=== PATIENT | female | born 1940 | race Caucasian/White ===

== ENCOUNTER → 2018-01-08 | Outpatient (CLI) | payer MEDICARE ==
[~2018-01-08] MED LIST: ALEV220T14 PO; ALPR0.25 PO; ASPI1TAB57 PO; CALC1TAB87 PO; CENTCHW4 CHEW; DIGO0.12 PO; ESCI10TA PO; LABE100T2 PO; OXYB5TAB8 PO; PREM0.622 PO; TAB-TAB PO; VITA100064 PO; VITA500T4 PO
[2018-01-08 09:35] LABS: AUTOMATED NEUTROPHIL # 2.4 TH/MM3 (1.8-7.7); BASOPHIL % 0.8 % (0.0-2.0); EOSINOPHIL # 0.3 TH/MM3 (0-0.4); EOSINOPHIL % 5.7 % (0.0-4.0); HEMOGLOBIN 13.7 GM/DL (11.6-15.3); LYMPH % 34.1 % (9.0-44.0); LYMPHOCYTE # 1.5 TH/MM3 (1.0-4.8); MEAN CELL VOLUME 94.1 FL (80.0-100.0); MEAN CORPUSCULAR HEMOGLOBIN 32.3 PG (27.0-34.0); MEAN CORPUSCULAR HGB CONC 34.3 % (32.0-36.0); MEAN PLATELET VOLUME 8.7 FL (7.0-11.0); MONO % 6.8 % (0.0-8.0); MONOCYTE # 0.3 TH/MM3 (0-0.9); NEUT % 52.6 % (16.0-70.0); PLATELET COUNT 177 TH/MM3 (150-450); RED BLOOD COUNT 4.25 MIL/MM3 (4.00-5.30); RED CELL DISTRIBUTION WIDTH 13.4 % (11.6-17.2); WHITE BLOOD COUNT 4.5 TH/MM3 (4.0-11.0)
[2018-01-08 09:42] LABS: INTERNATIONAL NORMALIZED RATIO 1.1 RATIO
[2018-01-08 09:59] LABS: BACTERIA, URINE MANY /hpf; BILIRUBIN, URINE NEG (NEG); BLOOD, URINE NEG (NEG); GLUCOSE,URINE NEG (NEG); KETONE, URINE NEG (NEG); MUCUS URINE FEW /lpf (OCC); NITRITE,URINE POS (NEG); SQUAMOUS EPITHELIAL CELL URINE 1 /hpf (0-5); URINE COLOR YELLOW (YELLW/STRAW); URINE LEUKOCYTE ESTERASE LARGE (NEG); WHITE BLOOD CELL CLUMPS OCC
[2018-01-08 09:59] LABS: ALBUMIN 3.7 GM/DL (3.4-5.0); AST (GOT) 16 U/L (15-37); BICARBONATE 28.4 MEQ/L (21.0-32.0); BLOOD UREA NITROGEN 22 MG/DL (7-18); CALCIUM 9.5 MG/DL (8.5-10.1); CHLORIDE 105 MEQ/L (98-107); CREATININE 1.04 MG/DL (0.50-1.00); GLOMERULAR FILTRATION RATE 51 ML/MIN (>89); GLUCOSE,FASTING 108 MG/DL (74-99); SODIUM (NA) 140 MEQ/L (136-145)
[2018-01-08 10:06] LABS: ALKALINE PHOSPHATASE 53 U/L (45-117); ALT (GPT) 28 U/L (10-53); TOTAL BILIRUBIN ADULT 0.6 MG/DL (0.2-1.0); TOTAL PROTEIN 7.2 GM/DL (6.4-8.2)
--- NOTE | 2018-01-08 15:33 | EKG ---
Date Performed: 01/08/2018 Time Performed: 08:44:46 PTAGE: 77 years EKG: SUPRAVENTRICULAR BRADYCARDIA BORDERLINE LEFT AXIS DEVIATION Since the previous tracing, no significant change noted ABNORMAL RHYTHM ECG PREVIOUS TRACING : 03/29/2010 13.33 DOCTOR: Cecilio Hudson Interpretating Date/Time 01/08/2018 15:25:44
== END ==
LOC: CPRE 08:01
PROVIDERS: ATTEND Surgery
DX: Z01.812 Encounter for preprocedural laboratory examination (principal); Z01.810 Encounter for preprocedural cardiovascular examination; B96.20 Unspecified Escherichia coli [E. coli] as the cause of diseases classified elsewhere; M79.609 Pain in unspecified limb; R00.1 Bradycardia, unspecified; R94.31 Abnormal electrocardiogram [ECG] [EKG]
CPT/HCPCS: 36415; 80053; 81001; 85025; 85610; 85730; 87077; 87086; 87186; 93005

== ENCOUNTER 2018-04-09 05:05 | Observation (INO) ==
[2018-04-09] MEDS ORDERED: Dexamethasone Inj 20 MG/5 ML Vial ONE (06:30)
[2018-04-09] MEDS ORDERED: Vancomycin Inj 1 GM/200 ML PIGGYBACK IV.SIG ONE (06:30)
[2018-04-09] MEDS ORDERED: Bupivacaine/Dextrose 0.75% Inj 2 ML Ampul ONE (06:36)
[2018-04-09] MEDS ORDERED: Bupivacaine PF 0.25% Inj 30 ML Vial ONE (07:11)
[2018-04-09] MEDS ORDERED: Propofol Inj 500 MG/50 ML Vial ONE (07:11)
[2018-04-09] MEDS ORDERED: ceFAZolin 2 GM Premix Inj 2 GM/50 ML PIGGYBACK IV.SIG ONE (07:23)
[2018-04-09] MEDS ORDERED: Bupivacaine Liposomal PF 1.3% Inj 20 ML Vial ONE (07:24)
[2018-04-09 07:40] LABS: Bacteria,Urine Occasional /hpf; Bilirubin,Urine Negative (Negative); Clarity,Urine Clear (Clear); Color,Urine Straw (Yellw/Straw); Glucose,Urine (UA) Negative (Negative); Leukocyte Esterase,Urine Negative (Negative); Mucus,Urine Few /lpf (Occasional); Nitrite,Urine Negative (Negative); Specific Gravity,Urine 1.006 (1.002-1.035); Squamous Epithelial Cell,Urine <1 /hpf (0-5)
[2018-04-09] MEDS ORDERED: ALPRAZolam 0.25 MG Tablet PO PRN (08:01)
--- NOTE | 2018-04-09 08:09 | MH ---
cc: Telma Bright MD DATE OF ADMISSION: 04/09/2018 DATE OF ADMISSION FOR SURGERY: 04/09/2018 ADMITTING DIAGNOSIS: Osteoarthritic degeneration of the right knee, now being admitted for right total knee arthroplasty. HISTORY OF PRESENT ILLNESS: This pleasant 77-year-old female is being admitted today for right total knee arthroplasty due to severe painful osteoarthritic degeneration of the right knee. PAST MEDICAL HISTORY: The patient has a history of anxiety, arthritis, breast cancer, depression, heart problems and back pain. CURRENT MEDICATIONS: She stopped her Eliquis now before surgery. She is on labetalol, digoxin, oxybutynin, alprazolam and escitalopram. PAST SURGICAL HISTORY: Mastectomy. REVIEW OF SYSTEMS: Noncontributory. FAMILY HISTORY: Noncontributory. SOCIAL HISTORY: She does not smoke or drink. ALLERGIES: ALLERGIC TO STRAIGHT CODEINE. PHYSICAL EXAMINATION: GENERAL: We find a 77-year-old female, well-developed, well-nourished, oriented x 3, complaining of pain in right knee. VITAL SIGNS: Blood pressure 110/60, pulse 62 and regular, respirations 18, temperature 98.2, pulse oximetry 97% on room air. HEENT: Eyes PERRLA. EOMI. Ears, nose, mouth clear. NECK: Supple. LUNGS: Clear. HEART: Regular rate. ABDOMEN: Soft, positive bowel sounds, nontender. EXTREMITIES: Reveal right knee to have crepitance on range of motion. She is neurovascularly intact to her toes. IMPRESSION: Osteoarthritic degeneration of the right knee. PLAN: Admission for right total knee arthroplasty today. The patient given prescription for postoperative pain and anticoagulation control in the office. Plans on going home after surgical stay in the hospital. Telma Bright MD JRR/KD , 01:11 PM , 01:38 PM
[2018-04-09] MEDS ORDERED: Sodium Chlor 0.9% Inj 80 ML, Bupivacaine Liposo PF 1.3% Inj 20 ML, Bupivacaine PF 0.25%... P-ARTICULR SCH ×3 (08:30)
[2018-04-09] MEDS ORDERED: Vancomycin Inj 1 GM/200 ML PIGGYBACK IV.SIG SCH (09:00)
[2018-04-09] MEDS ORDERED: SODIUM CHLOR 0.9% IV.SIG SCH ×3 (09:00→11:30)
[2018-04-09] MEDS ORDERED: CALCIUM CITRATE 200 MG PO SCH (09:00)
[2018-04-09] MEDS ORDERED: TRANEXAMIC ACID IV.SIG SCH ×3 (09:00→11:30)
[2018-04-09] MEDS ORDERED: ceFAZolin 2 GM Premix Inj 2 GM/50 ML PIGGYBACK IV.SIG SCH (09:00)
[2018-04-09] MEDS ORDERED: Non-Formulary Drug (Multivit-Min-Iron-Fa-Lutein [Centrum Silver Women] 1 TAB) PO SCH (09:00)
[2018-04-09] MEDS ORDERED: Tobramycin Sulfate 1,200 MG Vial (for ortho/sterile core) OTHER ONE (09:58)
[2018-04-09] MEDS ORDERED: Dexamethasone Inj 20 MG/5 ML Vial IV.PUSH SCH (10:15)
[2018-04-09] MEDS ORDERED: Morphine Inj 4 MG/ML Vial IV.PUSH PRN (11:10)
[2018-04-09] MEDS ORDERED: Post-op Orders (for Pharmacy) OTHER STA (11:10)
[2018-04-09] MEDS ORDERED: Bisacodyl 10 MG Supp RECTAL PRN (11:10)
[2018-04-09] MEDS ORDERED: Tranexamic Acid Inj 1,000 MG in Sodium Chlor 0.9% Inj 100 ML IV.SIG ONE (11:10)
--- NOTE | 2018-04-09 11:20 | P.DCO ---
- Physical Therapy Order: Evaluate and treat, Improve ambulation, Strength and gait training - Home Health Nursing Order: Medical education, Signs/symptoms of disease process, Medication education-adverse effect - Car Hop Order: To evaluate: Living conditions/environment, Support services - Case Management Consult Yes - Certification I have seen patient Elvia Mary on 04/09/18. My clinical findings support the need for the requested home health care services because: High risk of falls I certify that my clinical findings support that this patient is homebound because: Post-op weakness, Unsteady gait/balance
--- NOTE | 2018-04-09 11:24 | MP ---
cc: Telma Bright MD DATE OF OPERATION: 04/09/2018 PREOPERATIVE DIAGNOSIS: Osteoarthritic degeneration, right knee. POSTOPERATIVE DIAGNOSIS: Osteoarthritic degeneration, right knee. SURGERY PERFORMED: Right total knee arthroplasty using Consensus components, a size 5 femur, 3 tibia, 10 standard insert and size 2 patella. Two batches of antibiotic-impregnated cement using 1.2 grams of tobramycin. SURGEON: Kev Bright MD ASIAN STUDIES PROFESSOR: KATHERINE Wallis ANESTHESIA: Spinal. PROCEDURE: After successful induction of anesthesia, the patient is placed on the operating room table in the supine position. The knee is prepped and draped in the usual manner. A tourniquet is inflated at the upper thigh and set to 300 mmHg pressure after exsanguination of the lower extremity. A longitudinal incision is made extending from 3 inches proximal to the superior pole of the patella, across the patella in longitudinal fashion, and down past the insertion of the tibial tubercle into the proximal tibia. The incision is carried down through subcutaneous tissue along the medial aspect of the patella and retinaculum, down through the capsule to expose the knee joint. The patella and patellar tendon are freed up enough to allow the patella to be inverted and retracted off the lateral side of the knee joint. The knee joint is left exposed. Small osteophytes are removed. All soft tissue is removed to allow proper position of the femoral and tibial cutting jig guide. The first femoral jig is then inserted along the distal end of the femur after first measuring to decide whether this is a small, medium, or large component. The notch is then drilled and the tibial cutting guide inserted into the femoral cutting guide, along with the ankle brace to allow for proper measurement of the tibial cutting surface that needed to be resected. Pins are inserted into the tibial cutting jig and femoral cutting jig to hold them in place. An oscillating saw is then used to resect the surface of the tibia. The surface of the tibia is then completely removed using sharp and blunt dissection. The anterior and posterior cuts of the femur are then made as well using an oscillating saw through the cutting guide. All guides are then removed and the varus/valgus angulation cutting guide applied to the femur for proper measurement of the proper amount of valgus. The anterior cutting guide for the femur is then inserted at the anterior femoral cuts made. Next, the first block trial is inserted into the femur to allow for proper condyle drill holes to be made which are then made followed by removal of the bone between the condyles using an oscillating saw as well as the bone removed at the most posterior surface of the condyle. After this, this guide is removed and the chamfer cuts made using the chamfer cutting guide from both anterior and posterior. Next, the femoral trial is then inserted, the tibial surface reflected anterior to expose the tibial surface and a tibial stem guide is inserted after first measuring for a standard, standard plus, large, or large plus surface to be used. After the stem is impacted the trial tibial surface is applied followed by the trial meniscal components. After full range of motion is found with the appropriate length meniscal components varying the patella is prepared by resecting the posterior aspect of the patella using an oscillating saw, inserting a trial. The trial is then removed and the cruciate cutting guide applied using the bur to cut the cruciate cuts. After cruciate cuts are made all trials are removed. The wound is irrigated copiously with antibiotic solution and Water Pik and the actual components inserted into place using the aforementioned components. Multiple loose bony fragments were removed from the knee, indicative of osteochondromatosis. After the components were cemented into place, full range of motion was appreciated with no instability. The tourniquet is deflated, total tourniquet time being 60 minutes at 300 mmHg pressure. Meticulous hemostasis was achieved using 5 mL of FloSeal. The 60 mL of Exparel used around the knee joint. The deep fascia was approximated with running #2 Quill, subcutaneous tissue approximated using interrupted and running 2-0 and 4-0 Monocryl sutures, and Prineo dressing and knee immobilizer. No drain was utilized. The patient tolerated the procedure well and left the operating room in stable condition. ESTIMATED BLOOD LOSS: 400 mL COUNTS: Sponge and suture counts were correct. COMPONENTS: The components used were the aforementioned components. KATHERINE Wallis was present during the entire procedure to include patient positioning and the procedure. The medical necessity of nurse practitioner assistant attorney general was indicated in this case due to the surgical complexity of the case itself. During the surgical case, the surgical supervisor was working the back table while my surgical specialist KATHERINE was directly assisting me. J. Kev Bright MD JRR/TL , 11:00 AM , 11:22 AM
[2018-04-09] MEDS ORDERED: *morphine SULFATE 4 MG/ML PERIprocedure ONLY ONE (11:35)
[2018-04-09] MEDS ORDERED: *Meperidine Inj 25 MG/ML Vial PERIprocedural Use ONLY ONE (11:40)
--- NOTE | 2018-04-09 11:53 | P.PCN ---
Date of procedure: 04/09/18 Post-op diagnosis: same Procedure: Right Total Knee Arthroplasty Anesthesia: spinal Surgeon: Fabrice Bright Resaw Machine Operator: Berta Devi Estimated blood loss (mL): 400 Urine output (mL): 0 (No theodore) Pathology: none sent Condition: stable Disposition: PACU
--- NOTE | 2018-04-09 12:36 | XR ---
EXAM DATE: 04/09/2018 12:27 PM EDT AGE/SEX: 77 years / Female INDICATIONS: Post-op right knee. CLINICAL DATA: This is the patient's initial encounter. Patient reports that signs and symptoms have been present for 1 day and indicates a pain score of Nonresponsive. MEDICAL/SURGICAL HISTORY: None. Total knee replacement, right. COMPARISON: No prior exams available for comparison. FINDINGS: Status post placement of a right knee prosthesis. There is good position and alignment with the bony structures. The hardware is grossly intact. Postsurgical changes are present. CONCLUSION: Good position and alignment on this postoperative study. Electronically signed by: Basil Dueñas MD 04/09/2018 12:35 PM EDT
[2018-04-09] MEDS ORDERED: Tranexamic Acid Inj 0 MG in Sodium Chlor 0.9% Inj 100 ML IV.SIG SCH (12:55)
[2018-04-09] MEDS ORDERED: Metoprolol Tartrate 25 MG Tablet PO SCH (13:00)
[2018-04-09] MEDS ORDERED: Chlorhexidine Gluconate 2% 1 Pack (2 Cloths) TOPICAL SCH (13:00)
[2018-04-09] MEDS ORDERED: Sodium Chlor 0.9% Inj 500 ML IV.SIG SCH (13:00)
[2018-04-09] MEDS ORDERED: Ketorolac Inj 30 MG/ML (IVP) Vial IV.PUSH ONE (13:52)
[2018-04-09] MEDS: Labetalol 100 MG Tablet PO SCH (21:51)
[2018-04-09] MEDS: Senna/Docusate Sodium 8.6/50 MG Tablet PO SCH (21:51)
[2018-04-09] MEDS: Multivitamin/Minerals Therapeutic Tablet PO SCH (21:51)
[2018-04-09] MEDS: Digoxin 125 MCG Tablet PO SCH (22:31)
[2018-04-10] MEDS: Senna/Docusate Sodium 8.6/50 MG Tablet PO SCH ×2 (08:48→21:36)
[2018-04-10] MEDS: Escitalopram 10 MG Tablet PO SCH ×2 (08:49→19:13)
[2018-04-10 09:55] LABS: Hematocrit 33.3 % (35.0-46.0); Hemoglobin 11.2 gm/dL (11.6-15.3)
--- NOTE | 2018-04-10 12:00 | P.PNOP ---
Subjective Interval history: Patient is complaining of pain in the operative site. She is sitting up out of bed. The wound is intact dressing is dry. She is neurovascularly intact to her toes. Physical Exam Vital signs: Vital Signs 04/09/18 12:00 04/09/18 12:15 04/09/18 12:30 Temperature Pulse Rate 54 L 57 L 58 L Respiratory Rate Blood Pressure 128/61 154/57 H 139/55 L Pulse Oximetry 04/09/18 13:30 04/09/18 16:30 04/09/18 19:41 Temperature 97.7 F 97.9 F Pulse Rate 60 60 Respiratory Rate 18 18 Blood Pressure 156/70 H 145/67 H 151/83 H Pulse Oximetry 04/09/18 20:07 04/10/18 00:37 04/10/18 04:49 Temperature 97.2 F L 97.8 F 97.3 F L Pulse Rate 60 80 67 Respiratory Rate 17 17 18 Blood Pressure 140/65 145/61 H 143/67 H Pulse Oximetry 96 97 96 04/10/18 08:00 Temperature 97.7 F Pulse Rate 83 Respiratory Rate 17 Blood Pressure 146/77 H Pulse Oximetry 96 Intake & Output 04/09/18 04/10/18 04/10/18 18:59 06:59 18:59 Intake Total 3158.59 / 3158.59 460 / 460 Output Total 400 / 400 Balance 2758.59 / 2758.59 460 / 460 Weight 83.915 kg Intake: IV 2558.59 / 2558.59 100 / 100 LR 1000 mL Inj 1,000 ML @ 80 1000 / 1000 mls/hr IV.CONT .[id number] [facility] Rx# :[id number] LR 1000 mL Inj 1,000 ML @ 30 1000 / 1000 mls/hr IV.SIG .Q24H [facility] Rx#: [id number] Cyklokapron Inj 859 MG In NS 108.59 / 108.59 Inj 100 ML @ 200 mls/hr IV.SIG ONCE [facility] Rx#:[id number] Vancomycin Inj 1 gm In 200 ml @ 200 / 200 200 mls/hr IV.SIG PORTRAIT CONSULTANT [facility] Rx#:[id number] Ancef 2 GM Premix Inj 2 gm In 50 / 50 50 ml @ 100 mls/hr IV.SIG PORTRAIT CONSULTANT [facility] Rx#:[id number] Ancef Inj 1,000 MG In NS Inj 200 / 200 100 / 100 100 ML @ 200 mls/hr IV.SIG Q6H [facility] Rx#:[id number] Oral 360 / 360 Anesthesia Amount 600 / 600 Output: Estimated Blood Loss 400 / 400 Other: # Voids 3 Date of Last Bowel Movement 04/09/18 # Bowel Movements 0 - Urinary Catheter Management Straight Cath placed during this visit: yes Reason for continuing: Not indwelling catheter Insertion date: 04/09/18 Insertion time: 07:20 Results - Labs CBC & Chem 7: 04/10/18 09:10 Laboratory Results - last 24 hr 04/10/18 09:10 Hgb 11.2 L Hct 33.3 L Microbiology 04/09/18 07:05 Catheterized Urine Urine Culture - Preliminary No growth in 24 hours - Imaging Impressions Knee X-Ray 04/09/18 08:17 CONCLUSION: Good position and alignment on this postoperative study. Assessment and Plan - Problem List (1) Status post total right knee replacement using cement Code(s): Z96.651 - Presence of right artificial knee joint Status: Acute - Assessment and Plan Plan is for the patient to continue out of bed with physical therapy. She plans on going home with home health care in the near future.
[2018-04-10] MEDS: Multivitamin/Minerals Therapeutic Tablet PO SCH ×2 (15:00→21:36)
[2018-04-10] MEDS: Labetalol 100 MG Tablet PO SCH (21:36)
[2018-04-10] MEDS: Digoxin 125 MCG Tablet PO SCH (21:37)
[2018-04-11 01:20] VITALS: RESP 18
[2018-04-11 06:45] LABS: Hemoglobin 10.6 gm/dL (11.6-15.3)
--- NOTE | 2018-04-11 07:52 | P.PNOP ---
Subjective Interval history: Patient comfortable with no complaints today. Dressing dry and intact. She is neurovascularly intact. Physical Exam Vital signs: Vital Signs 04/10/18 08:00 04/10/18 12:00 04/10/18 16:00 Temperature 97.7 F 98.0 F 98.2 F Pulse Rate 83 78 62 Respiratory Rate 17 18 17 Blood Pressure 146/77 H 137/63 155/70 H Pulse Oximetry 96 95 96 04/10/18 20:00 04/11/18 00:00 Temperature 98.2 F 98.6 F Pulse Rate 71 77 Respiratory Rate 19 18 Blood Pressure 156/91 H 150/67 H Pulse Oximetry 94 L 95 Intake & Output 04/10/18 04/11/18 04/11/18 18:59 06:59 18:59 Intake Total 1000 / 1000 1000 / 1000 Balance 1000 / 1000 1000 / 1000 Weight 84 kg Intake: IV 1000 / 1000 LR 1000 mL Inj 1,000 ML @ 80 1000 / 1000 mls/hr IV.CONT .[id number] [facility] Rx# :[id number] Oral 1000 / 1000 Other: # Voids 3 7 Date of Last Bowel Movement 04/09/18 - Urinary Catheter Management Straight Cath placed during this visit: yes Reason for continuing: Not indwelling catheter Insertion date: 04/09/18 Insertion time: 07:20 Results - Labs CBC & Chem 7: 04/11/18 06:03 Laboratory Results - last 24 hr 04/10/18 04/11/18 09:10 06:03 Hgb 11.2 L 10.6 L Hct 33.3 L 31.0 L Microbiology 04/09/18 07:05 Catheterized Urine Urine Culture - Preliminary No growth in 24 hours Assessment and Plan - Problem List (1) Status post total right knee replacement using cement Code(s): Z96.651 - Presence of right artificial knee joint Status: Acute - Assessment and Plan Plan is for the patient to continue out of bed with physical therapy. She plans on going home with home health care in the near future. - Attending Attestation Attending Attestation: Plan is to go home today with home health care and physical therapy. Appointment to see Dr. Bright next week.
[2018-04-11] MEDS: Escitalopram 10 MG Tablet PO SCH ×2 (07:55→11:04)
[2018-04-11] MEDS: Senna/Docusate Sodium 8.6/50 MG Tablet PO SCH ×2 (07:55→11:05)
[2018-04-11] MEDS: Multivitamin/Minerals Therapeutic Tablet PO SCH ×2 (07:56→11:05)
[2018-04-11 12:30] VITALS: BP 135/62; PULSE 71; TEMP 97.5; O2SAT 96
== END 2018-04-11 13:53 | disposition home health service (06) ==
LOC: N06 05:05 → HSDC 05:05
PROVIDERS: ADMIT Surgery; ATTEND Surgery